=== PATIENT | female | born 1950 | race Caucasian/White ===

== ENCOUNTER → 2018-12-17 | Day surgery (SDC) | payer MEDICARE ==
[2018-12-16 16:33] LABS: BASOPHILS % 0.3 % (0.0-1.0); EOSINOPHILS # (AUTO) 0.2 (0.0-0.4); EOSINOPHILS % 1.8 % (0.0-6.0); HEMATOCRIT 43.4 % (34.2-44.1); HEMOGLOBIN 13.9 g/dL (12.0-16.0); LYMPHOCYTES # (AUTO) 3.7 (1.0-3.2); LYMPHOCYTES % 30.2 % (18.0-39.1); MEAN CORPUSCULAR HEMOGLOBIN 29.1 pg (28-32); MEAN CORPUSCULAR VOLUME 90.8 fL (81-99); MONOCYTES # (AUTO) 0.9 (0.2-0.8); MONOCYTES % 7.5 % (4.4-11.3); NEUTROPHILS # (AUTO) 7.3 (2.1-6.9); NEUTROPHILS % 59.8 % (38.7-80.0); PLATELET COUNT 302 x10e3/uL (140-360); RED BLOOD COUNT 4.78 x10e6/uL (3.6-5.1)
[~2018-12-17] MED LIST: ACETAZOLAMIDE 500 MG CAP ONE; ADVAIR HFA 115-12 GM INH; AMLODIPINE BESY10 MG PO; ASPIR 8181 MG PO; ATORVASTATIN CA20 MG PO; BALANCED SALT SOLN (OPTH) 15 ML BTL IO ONE; CHONDR SU A NA/HYALUR SOD 1 EACH KIT IO ONE; CYCLOPENTOLATE HCL 1% OPTH SOLN 2ML BTL ONE; EPINEPHRINE HCL 1:1000 1ML 1 MG/ML AMP ONE; FENTANYL CITRATE/PF 100MCG/2 ML INJ ONE; FUROSEMIDE40 MG PO; LIDOCAINE HCL-PF 4% 40 MG/1 ML 5ML AMP ONE; LISINOPRIL10 MG PO; METOPROLOL SUCC50 MG PO; MIDAZOLAM HCL 2 MG/2 ML VIAL ONE; MOXIFLOXACIN HCL(OPTH) 3 ML BTL ONE; OXYBUTYNIN CHLOR5 MG PO; PHENYLEPHRINE HCL 2 ML DROPS ONE; POVIDONE IODINE 5% (OPTH) 30 ML BTL ONE; TROPICAMIDE 1% OPTH SOLN 3ML ONE; VENTOLIN HFA18 GM INH; potassium PO; vascepa PO
--- OUTSIDE RECORDS SUMMARY | 2018-12-17 05:14 | XMS REPORT | Clinical Summary ---
Author Author [facility] Address Unknown Phone Unavailable Care Team Providers Care Conduit Bender Name Role Phone Le Starr MD PCP Allergies Comments Active Allergy Reactions Severity Noted Date PSYCHIATRIC SIDE EFFECTS Varenicline Dermatitis, High 09/26/2018 Other (See Comments) Penicillins Anaphylaxis High 07/15/2017 Medications End Date Status Medication Sig Dispensed Refills Start Date Active metoprolol tartrate Take 50 mg by 0 (LOPRESSOR) 50 mg tablet mouth daily. Active furosemide (LASIX) 40 mg Take 40 mg by 0 tablet mouth daily. Active oxybutynin (DITROPAN) 5 Take 10 mg by 0 MG tablet mouth nightly. Active potassium chloride Take 20 mEq 0 (KLOR-CON) 20 mEq packet by mouth daily. Active atorvastatin (LIPITOR) 40 Take 40 mg by 0 MG tablet mouth daily. Active amLODIPine (NORVASC) 10 Take 10 mg by 0 mg tablet mouth. Active lisinopril Take 20 mg by 0 (PRINIVIL,ZESTRIL) 20 mg mouth. tablet Active hydroCHLOROthiazide Take 25 mg by 0 (HYDRODIURIL) 25 MG mouth daily. tablet 10/27/2018 traMADol (ULTRAM) 50 mg Take 1 tablet 30 tablet 0 tablet (50 mg total) 9 by mouth every 6 (six) hours as needed for moderate pain for up to 30 days. Active Problems Problem Noted Date Acute right-sided low back pain without sciatica 09/26/2018 Encounters Care Team Description Date Type Specialty Humberto Mora MD Joglekar, Swati, MD Acute right-sided low back pain without sciatica (Primary Dx); Poor tolerance for ambulation 09/26/2018 Emergency General Internal Medicine - 09/27/2018 after 12/16/2017 Social History Date Tobacco Use Types Packs/Day Years Used Current Every Day Smoker Cigarettes 0.5 Smokeless Tobacco: Never Used Drinks/Week oz/Week Comments Alcohol Use No Sex Assigned at Date Recorded Not on file Industry Job Start Date Occupation Not on file Not on file Not on file Travel End Travel History Travel Start No recent travel history available. Last Filed Vital Signs Reading Time Taken Comments Vital Sign 112/57 09/27/2018 3:15 PM CDT Blood Pressure 66 09/27/2018 3:15 PM CDT Pulse 35.9 C (96.6 F) 09/27/2018 3:15 PM CDT Temperature 19 09/27/2018 3:15 PM CDT Respiratory Rate 95% 09/27/2018 3:15 PM CDT Oxygen Saturation - - Inhaled Oxygen Concentration 179 kg (394 lb 12.8 oz) 09/26/2018 3:37 AM CDT Weight 165.1 cm (5' 5") 09/26/2018 3:37 AM CDT Height 65.7 09/26/2018 3:37 AM CDT Body Mass Index Plan of Treatment Health Maintenance Due Date Last Done Comments COLONOSCOPY SCREENING 02/06/2002 SHINGLES VACCINES (#1) 02/06/2002 65+ PNEUMOCOCCAL VACCINE 02/06/2017 (1 of 2 - PCV13) INFLUENZA VACCINE 10/31/2018 BREAST CANCER SCREENING 09/29/2019 09/28/2017 Procedures Comments Procedure Name Priority Date/Time Associated Diagnosis ESTIMATED GFR Routine 09/27/2018 6:33 AM CDT BASIC METABOLIC PANEL Routine 09/27/2018 6:33 AM CDT HC COMPLETE BLD COUNT Routine 09/27/2018 W/AUTO DIFF 6:[address] THORACIC SPINE WO Routine 09/26/2018 CONTRAST 11:[address] LUMBAR SPINE WO Routine 09/26/2018 CONTRAST 11:16 AM CDT URINALYSIS SCREEN AND Routine 09/26/2018 MICROSCOPY, WITH REFLEX 5:[address] TO C[address] RENAL STONE PROTOCOL STAT 09/26/2018 4:36 AM CDT LIPID PANEL Routine 09/26/2018 4:00 AM CDT HEMOGLOBIN A1C Routine 09/26/2018 4:00 AM CDT ESTIMATED GFR STAT 09/26/2018 4:00 AM CDT CREATINE KINASE, TOTAL STAT 09/26/2018 (CPK) 4:00 AM CDT TROPONIN STAT 09/26/2018 4:00 AM CDT LIPASE LEVEL STAT 09/26/2018 4:00 AM CDT HEPATIC FUNCTION PANEL STAT 09/26/2018 4:00 AM CDT HC COMPLETE BLD COUNT STAT 09/26/2018 W/AUTO DIFF 4:00 AM CDT BASIC METABOLIC PANEL STAT 09/26/2018 4:00 AM CDT after 12/16/2017 Results * Estimated GFR (09/27/2018 6:33 AM CDT) Only the most recent of 2 results within the time period is included. Pathologist [facility] Estimated GFR 76 mL/min/1.73 m2 [place] Comment: WORSHIP [facility] G1 >=90 Normal or high G2 60-89Mildly decreased [id number] Mildly to moderately decreased [id number] Moderately to severely decreased G4 15-29Severely decreased G5 <15Kidney failure The eGFR was calculated using the Chronic Kidney Disease Epidemiology Collaboration (CKD-EPI) equation. Interpretation is based on recommendations of the National Kidney Foundation-Kidney Disease Outcomes Quality Initiative (NKF-KDOQI) published in 2014. Specimen Plasma specimen Performing Organization Address City/State/Zipcode Phone Number [facility] [address] [place] [address] PATHOLOGY AND GENOMIC MEDICINE [facility] [address] * CBC with platelet and differential (09/27/2018 6:33 AM CDT) Only the most recent of 2 results within the time period is included. Pathologist [facility] WBC 10.8 4.2 - 11.0 k/uL [facility] RBC 4.30 4.04 - 5.86 m/uL [facility] HGB 12.5 11.5 - 15.3 g/dL [facility] HCT 40.6 34.0 - 45.0 % [facility] MCV 94.4 80.0 - 98.0 fL [facility] MCH 29.1 27.0 - 34.0 pg [facility] MCHC 30.8 (L) 31.5 - 36.5 g/dL [facility] RDW - SD 49.1 37.0 - 51.0 fL [facility] MPV 9.9 7.4 - 10.4 fL [facility] Platelet count 265 150 - 400 k/uL [facility] Nucleated RBC 0.00 /100 WBC [facility] Neutrophils 58.9 36.0 - 66.0 % [facility] Lymphocytes 30.5 24.0 - 44.0 % [facility] Monocytes 7.0 (H) 0.0 - 6.0 % [facility] Eosinophils 2.7 0.0 - 6.0 % [facility] Basophils 0.5 0.0 - 1.2 % [facility] Immature 0.4 0.0 - 1.0 % [place] granulocytes [facility] Specimen Blood Performing Organization Address City/State/Zipcode Phone Number [facility] [place] [address] PATHOLOGY AND GENOMIC MEDICINE [address] * Basic metabolic panel (09/27/2018 6:33 AM CDT) Only the most recent of 2 results within the time period is included. Sodium 140 135 - 150 mEq/L [facility] Potassium 4.0 3.5 - 5.0 mEq/L [facility] Chloride 102 98 - 112 mEq/L [facility] CO2 30 24 - 31 mmol/L [facility] Anion gap 8@ANIO 7 - 15 mEq/L [facility] BUN 19 (H) 7 - 18 mg/dL [facility] Creatinine 0.80 0.50 - 0.90 mg/dL [facility] Glucose 114 (H) 65 - 100 mg/dL [facility] Calcium 9.3 8.8 - 10.2 mg/dL [facility] Specimen Plasma specimen Performing Organization Address City/State/Zipcode Phone Number [facility] [address] [place] [address] PATHOLOGY AND GENOMIC MEDICINE [facility] [address] * CT Thoracic Spine Wo Contrast (09/26/2018 11:17 AM CDT) Specimen Narrative Performed At EXAMINATION:CT THORACIC SPINE WO CONTRAST [facility] CLINICAL HISTORY:Mid-back T-spine paininitial exam COMPARISON:None. Technique: Multiple axial CT images of the thoracic spine are obtained without the use of intravenous contrast. Coronal and sagittal 3-D reconstructions are obtained. CT scans are performed using radiation dose reduction techniques.Technical factors are evaluated and adjusted to ensure appropriate moderation of exposure.Automated dose management technology is applied to adjust radiation exposure while achieving a diagnostic quality image. FINDINGS: The visualized lungs demonstrate minimal atelectasis at the lower lung bases. The heart has no pericardial effusion. The thoracic aorta has no aneurysmal dilatation. The visualized portions of the retroperitoneum are unremarkable. The thoracic spine has no acute fracture or subluxation. There are no osseous lesions present. IMPRESSION: 1. There is no acute fracture or subluxation of the thoracic spine. Procedure Note Interface, Radiology Results Incoming - 09/26/2018 12:02 PM CDT EXAMINATION: CT THORACIC SPINE WO CONTRAST CLINICAL HISTORY: Mid-back T-spine pain initial exam COMPARISON: None. Technique: Multiple axial CT images of the thoracic spine are obtained without the use of intravenous contrast. Coronal and sagittal 3-D reconstructions are obtained. CT scans are performed using radiation dose reduction techniques. Technical factors are evaluated and adjusted to ensure appropriate moderation of exposure. Automated dose management technology is applied to adjust radiation exposure while achieving a diagnostic quality image. FINDINGS: The visualized lungs demonstrate minimal atelectasis at the lower lung bases. The heart has no pericardial effusion. The thoracic aorta has no aneurysmal dilatation. The visualized portions of the retroperitoneum are unremarkable. The thoracic spine has no acute fracture or subluxation. There are no osseous lesions present. IMPRESSION: 1. There is no acute fracture or subluxation of the thoracic spine. Performing Organization Address City/State/Zipcode Phone Number [facility] [address] [place] [address] * CT Lumbar Spine Wo Contrast (09/26/2018 11:16 AM CDT) Specimen Narrative Performed At EXAMINATION:[facility]:Back [id number] red flagsno prior management, COMPARISON:None. Technique: Multiple axial CT images of the lumbar spine are obtained without the use of intravenous contrast. Coronal and sagittal 3-D reconstructions are obtained. CT scans are performed using radiation dose reduction techniques.Technical factors are evaluated and adjusted to ensure appropriate moderation of exposure.Automated dose management technology is applied to adjust radiation exposure while achieving a diagnostic quality image. FINDINGS: The visualized portions of the retroperitoneum are unremarkable. The abdominal aorta has no aneurysmal dilatation. There is no free fluid seen within the pelvis. The vertebral bodies maintain normal height and alignment. There is no acute fracture or subluxation. Degenerative changes are present consistent with osteophytes anteriorly. Facet hypertrophy is present. The sacrum is intact. SI joints unremarkable. IMPRESSION: 1. There is no acute fracture or subluxation. 2. Degenerative changes are present consistent with osteoarthritis. 3. Mild atherosclerotic vascular changes are present consistent with osteonecrosis. Procedure Note Interface, Radiology Results Incoming - 09/26/2018 12:22 PM CDT EXAMINATION: CT LUMBAR SPINE WO CONTRAST CLINICAL HISTORY: Back pain 6wks no red flags no prior management, COMPARISON: None. Technique: Multiple axial CT images of the lumbar spine are obtained without the use of intravenous contrast. Coronal and sagittal 3-D reconstructions are obtained. CT scans are performed using radiation dose reduction techniques. Technical factors are evaluated and adjusted to ensure appropriate moderation of exposure. Automated dose management technology is applied to adjust radiation exposure while achieving a diagnostic quality image. FINDINGS: The visualized portions of the retroperitoneum are unremarkable. The abdominal aorta has no aneurysmal dilatation. There is no free fluid seen within the pelvis. The vertebral bodies maintain normal height and alignment. There is no acute fracture or subluxation. Degenerative changes are present consistent with osteophytes anteriorly. Facet hypertrophy is present. The sacrum is intact. SI joints unremarkable. IMPRESSION: 1. There is no acute fracture or subluxation. 2. Degenerative changes are present consistent with osteoarthritis. 3. Mild atherosclerotic vascular changes are present consistent with osteonecrosis. Performing Organization Address City/State/Zipcode Phone Number [facility] [address] [place] [address] * Urinalysis screen and microscopy, with reflex to culture (09/26/2018 5:43 AM CDT) Specimen site Clean catch [facility] Color, UA Straw [facility] Appearance, UA Clear [facility] Specific 1.009 1.001 - 1.035 [place] gravity, [facility] pH, UA 7.0 5.0 - 8.5 [facility] Protein, UA Negative Negative [facility] Glucose, UA Negative Negative [facility] Ketones, UA Negative Negative [facility] Bilirubin, UA Negative Negative [facility] Blood, UA Negative Negative [facility] Nitrite, UA Negative Negative [facility] Urobilinogen, Negative <2.0 [facility] Leukocyte Negative Negative [place] esterase, [facility] Epithelial Moderate /HPF [place] cells, [facility] WBC, UA 2 0 - 5 /HPF [facility] RBC, UA 3 0 - 5 /HPF [facility] Bacteria, UA Trace None seen [facility] Yeast, UA None seen [facility] Yeast with None seen [place] pseudohyphae, [facility] Hyaline casts, 1 /LPF [facility] Specimen Urine Performing Organization Address City/State/Zipcode Phone Number [facility] [address] [place] [address] PATHOLOGY AND GENOMIC MEDICINE [facility] [address] [place] [address] HOSPITAL * CT Renal Stone Protocol (09/26/2018 4:36 AM CDT) Specimen Narrative Performed At EXAMINATION:CT RENAL STONE PROTOCOL [facility] CLINICAL HISTORY:R flank low back pain TECHNIQUE: Multiple axial images of the abdomen and pelvis were obtained without intravenous administration of iodinated contrast. Sagittal and coronal computerized reformatted images were also obtained. The lack of intravenous contrast reduces the sensitivity of detecting solid organ disease. CT imaging was performed with iterative reconstruction technique and/or automated exposure control to reduce radiation dose. COMPARISON:None. IMPRESSION: Patient is status post cholecystectomy. Liver, spleen, pancreas are normal. 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 Simple cyst is seen of right kidney. Mild bilateral hydronephrosis is seen. No calculi are seen, and clinical correlation is advised to this with the possibility of bilateral urinary tract infection. The bladder is unremarkable. No free intraperitoneal fluid or air. Small fat-containing umbilical region hernia is identified. Atherosclerotic vascular calcifications are seen. Diverticulosis is seen without diverticulitis. The appendix is normal. No gastrointestinal tract obstruction. No acute osseous abnormalities. Mild degenerative change of thoracolumbar spine. Summary: Mild bilateral hydronephrosis is seen. No calculi are seen, and clinical correlation is advised to this with the possibility of bilateral urinary tract infection. [facility]-[id number] Procedure Note Interface, Radiology Results Incoming - 09/26/2018 4:53 AM CDT EXAMINATION: CT RENAL STONE PROTOCOL CLINICAL HISTORY: R flank low back pain TECHNIQUE: Multiple axial images of the abdomen and pelvis were obtained without intravenous administration of iodinated contrast. Sagittal and coronal computerized reformatted images were also obtained. The lack of intravenous contrast reduces the sensitivity of detecting solid organ disease. CT imaging was performed with iterative reconstruction technique and/or automated exposure control to reduce radiation dose. COMPARISON: None. IMPRESSION: Patient is status post cholecystectomy. Liver, spleen, pancreas are normal. 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 Simple cyst is seen of right kidney. Mild bilateral hydronephrosis is seen. No calculi are seen, and clinical correlation is advised to this with the possibility of bilateral urinary tract infection. The bladder is unremarkable. No free intraperitoneal fluid or air. Small fat-containing umbilical region hernia is identified. Atherosclerotic vascular calcifications are seen. Diverticulosis is seen without diverticulitis. The appendix is normal. No gastrointestinal tract obstruction. No acute osseous abnormalities. Mild degenerative change of thoracolumbar spine. Summary: Mild bilateral hydronephrosis is seen. No calculi are seen, and clinical correlation is advised to this with the possibility of bilateral urinary tract infection. [facility]-[id number] Performing Organization Address City/State/Zipcode Phone Number [facility] [address] [place] [address] * Troponin (09/26/2018 4:00 AM CDT) Troponin <0.006 0.000 - 0.040 ng/mL [place] Comment: WORSHIP [facility] changed methodology effective: HOSPITAL 08/06/2018 at 10:00 am The new method has a 99th percentile cutoff of 0.040 ng/mL Specimen Plasma specimen Performing Organization Address City/[facility] Phone Number [facility] [place] [address] PATHOLOGY AND [facility] MEDICINE [address] [place] * Lipase level (09/26/2018 4:00 AM CDT) Pathologist [facility] Lipase 27 13 - 60 U/L [facility] Specimen Plasma specimen Performing Organization Address [facility] Phone Number [facility] [address] [facility] [place] [id number] PATHOLOGY AND GENOMIC MEDICINE [address] * Hemoglobin A1c (09/26/2018 4:00 AM CDT) Pathologist [facility] Hemoglobin A1C 5.8 (H) 4.0 - 5.6 % [place] Comment: WORSHIP HbA1c cutoffs for diagnosing [place] diabetes: HOSPITAL 4.0% - 5.6%=normal 5.7% - 6.4%=increased risk for diabetes (prediabetes) >=6.5%=diabetes Goals for glycemic control (ADA 2016) < 7.0%Target for non adults with diabetes. More or less stringent targets may be appropriate for individual patients. <7.5% Target for Children and adolescents with type 1 diabetes. Specimen Blood Performing Organization Address City/[facility]/Zipcode Phone Number [facility] [address] [place] [address] PATHOLOGY AND GENOMIC MEDICINE [facility] [place] [place] [address] * Creatine kinase, total (CPK) (09/26/2018 4:00 AM CDT) Pathologist [facility] Creatine kinase 31 26 - 192 U/L [facility] Specimen Plasma specimen Performing Organization Address City/[facility] Phone Number [facility] [address] [place] [address] PATHOLOGY AND GENOMIC MEDICINE [facility] [address] * Hepatic function panel (09/26/2018 4:00 AM CDT) [facility] Albumin 3.2 (L) 3.5 - 5.0 g/dL [facility] Total bilirubin <0.3 0.2 - 1.2 mg/dL [facility] Bilirubin <0.2 0.0 - 0.4 mg/dL [facility] Alkaline 94 0 - 104 U/L [place] phosphatase [facility] Protein 7.2 6.3 - 8.3 g/dL [facility] ALT 13 5 - 50 U/L [facility] AST 13 10 - 35 U/L [facility] Specimen Plasma specimen Performing Organization Address City/[facility] Phone Number [facility] [address] [place] [address] PATHOLOGY AND GENOMIC MEDICINE [facility] [address] [place] [address] * Lipid panel (09/26/2018 4:00 AM CDT) Cholesterol 157 0 - 199 mg/dL [facility] Triglycerides 269 (H) 0 - 149 mg/dL [facility] HDL cholesterol 38 (L) 40 - 9,999 mg/dL [facility] LDL cholesterol 100 (H)Comment: Result 0 - 99 mg/dL [place] obtained by direct LDL WORSHIP measurement [facility] Lipid panel See below [place] interpretation Comment: WORSHIP Total Cholesterol [place] (mg/dL) [facility] LDL Cholesterol (mg/dL) <200 Desirable <100 Optimal 200-239Borderline -[id number] 29Near or above optimal >=240High 130-159Borderline- high 160-189High >=190Very high HDL Cholesterol (mg/dL) Triglycerides (mg/dL) <40Low <150 Normal >=60 High 150-199Borderline- high 200-499High >=500Very high Risk Catergories that modify LDL goals. Risk Catergories LDL goal (mg/dL) CHD and CHD risk equivalent <100 (10-year risk >20%) Multiple (2+) risk factors <130 (10-year risk=<20%) 0-1 risk factors <160 (<10-year risk) Defining levels of lipids in metabolic syndrome Triglycerides >=150 mg/dL HDL Cholesterol Men <40 mg/dL Women <50 mg/dL Non-HDL cholesterol is a second target for therapy in persons with high triglycerides (>=200 mg/dL) Specimen Plasma specimen Performing Organization Address City/State/Zipcode Phone Number [facility] [address] [place] [address] PATHOLOGY AND GENOMIC MEDICINE [facility] [address] [place] [address] HOSPITAL after 12/16/2017 Insurance Type Payer Benefit Subscriber ID Effective Phone Address Plan / Dates Group Medicaid MEDICAID MEDICAID xxxxxxxxx 2017- Present HMO [employer] AMERIGROUP xxxxxxxxx 2018-P -AMERIVANT resent AGE MCR O Advance Directives For more information, please contact: [phone] Patient Press Officer Explanation Type Date Recorded Advance Directives, 10/16/2015 9:22 AM Living Will and Medical Power of Continuous Drier Operator Advance Directives, 07/15/2017 10:31 AM Living Will and Medical Power of Continuous Drier Operator Advance Directives, 09/26/2018 4:08 AM Living Will and Medical Power of Continuous Drier Operator Date Inactivated Comments Code Status Date Activated 09/27/2018 10:46 PM Full Code 09/26/2018 5:10 AM Code Status decision reached by: Patient
--- OUTSIDE RECORDS SUMMARY | 2018-12-17 05:15 | XMS REPORT ---
Author Author [facility] Address Unknown Phone Unavailable Care Team Providers Care Translator Name Role Phone Unavailable Unavailable Problems This patient has no known problems. Allergies, Adverse Reactions, Alerts This patient has no known allergies or adverse reactions. Medications This patient has no known medications. Results Test Description Test Time Test Comments Text Results Atomic Results Result Comments XR Chest 1 View Frontal 2018-02-01 14:28:05 Patient: JOHANNY GUILLEN Date/Time02/01/2018 13:30 CDTReason for Exampre opReportEXAM: CHEST ONE VIEWINDICATION: PreopCOMPARISON: None availableTECHNIQUE: AP view of the chest.FINDINGS:The cardiomediastinal silhouette is normal. The lungs are clear bilaterally. No pneumothorax or pleural effusion is identified. The osseous structures are unremar kable.IMPRESSION:No acute cardiopulmonary process.LOCATION: R16 Final Dictated by: MD Barahona Melanie CDictated DT/TM: 02/01/2018 2:28 pmSigned by: MD Barahona Melanie CSigned (Electronic Signature): 02/01/2018 2:28 pm
[2018-12-17 08:40] VITALS: BP 135/73
== END | disposition home or self-care (01) ==
LOC: OR 05:00
PROVIDERS: ATTEND Ophthalmology
DX: H25.812 Combined forms of age-related cataract, left eye (principal); J45.909 Unspecified asthma, uncomplicated; H54.62 Unqualified visual loss, left eye, normal vision right eye; I10 Essential (primary) hypertension; E66.9 Obesity, unspecified; Z72.0 Tobacco use; Z01.810 Encounter for preprocedural cardiovascular examination; Z01.812 Encounter for preprocedural laboratory examination; Z88.0 Allergy status to penicillin; Z88.8 Allergy status to other drugs, medicaments and biological substances; Z79.82 Long term (current) use of aspirin
CPT/HCPCS: 36415; 66982; 85025; 93005; J0171; J2250; J3010; V2632